=== PATIENT | male | born 1985 | race Caucasian/White ===

== ENCOUNTER 2019-07-26 18:35 | Observation (INO) | payer OTHER ==
[~2019-07-26 18:35] MED LIST: LORazepam 2 MG/ML Syringe ONE
[2019-07-26] MEDS ORDERED: LORazepam 2 MG/ML Syringe IVPUSH ONE (18:52)
[2019-07-26] MEDS ORDERED: Phenytoin 250 MG/5 ML SDV IVPUSH ONE (18:54)
[2019-07-26] MEDS ORDERED: MVI, Adult with Vitamin K 10 ML, Folic Acid 1 MG, Thiamine 100 MG, Magnesium Sulfate 2 ... IV ONE ×5 (18:55)
--- NOTE | 2019-07-26 18:59 | EDM.PDOC ---
ED HPI GENERAL MEDICAL PROBLEM - General Chief Complaint: Neurological Problem Stated Complaint: SEIZURE Time Seen by Provider: 07/26/19 18:50 Source of Information: Reports: Patient, EMS, Family History Limitations: Reports: No Limitations - History of Present Illness INITIAL COMMENTS - FREE TEXT/NARRATIVE: Patient to the emergency department where he had a seizure just prior to arrival. The patient was in the middle of cooking when he had the seizure. The patient advises he does have a history of seizures however he has not had a seizure for multiple years. The patient advises that his last seizure was when he was in the . The patient denies any headache denies any change in vision denies any ear, nose, or throat symptoms denies any unusual neck, back pain or stiffness denies any fever chills denies any chest pain or shortness of breath denies any abdominal pain no nausea, vomiting, diarrhea, no rash. The patient did arrive by EMS and it is unclear how long the seizure lasted. Onset: Sudden Duration: Minutes: Severity: Moderate Improves with: Reports: None Worsens with: Reports: None Context: Reports: Other (Was cooking dinner) Associated Symptoms: Reports: Seizure. Denies: Confusion, Chest Pain, Fever/ Chills, Headaches, Nausea/Vomiting, Rash, Shortness of Breath Treatments [employer]: Reports: Other (see below) (none) - Related Data Allergies Allergy/AdvReac Type Severity Reaction Status Date / Time No Known Allergies Allergy Verified 07/26/19 18:39 Home Meds: Home Meds . [No Known Home Meds] 07/26/19 [History] Past Medical History Neurological History: Reports: Seizure ED ROS GENERAL - Review of Systems Review Of Systems: See Below Constitutional: Reports: No Symptoms. Denies: Fever, Chills, Weakness HEENT: Reports: No Symptoms. Denies: Ear Pain, Nose Pain, Throat Pain Respiratory: Reports: No Symptoms. Denies: Shortness of Breath Cardiovascular: Reports: No Symptoms. Denies: Chest Pain Endocrine: Reports: No Symptoms GI/Abdominal: Reports: No Symptoms. Denies: Abdominal Pain, Nausea, Vomiting : Reports: No Symptoms Musculoskeletal: Reports: No Symptoms. Denies: Neck Pain, Back Pain Skin: Reports: No Symptoms. Denies: Bruising, Rash, Erythema Neurological: Reports: Seizure. Denies: Confusion, Dizziness, Headache, Numbness, Tingling, Trouble Speaking, Weakness, Change in Speech, Gait Disturbance Psychiatric: Reports: No Symptoms - Physical Exam Exam: See Below Exam Limited By: No Limitations General Appearance: Alert, WD/WN, No Apparent Distress Eye Exam: Bilateral Eye: EOMI Ears: Normal External Exam, Normal Canal, Hearing Grossly Normal, Normal TMs Nose: Normal Inspection, Normal Mucosa Throat/Mouth: Normal Inspection, Normal Lips, Normal Teeth, Normal Oropharynx, Normal Voice, No Airway Compromise Head Exam: Atraumatic, Normocephalic Neck: Normal Inspection, Supple, Non-Tender, Full Range of Motion Respiratory/Chest: No Respiratory Distress, Lungs Clear, Normal Breath Sounds, Chest Non-Tender Cardiovascular: Normal Peripheral Pulses, Regular Rate, Rhythm, No Murmur GI/Abdominal: Normal Bowel Sounds, Soft, Non-Tender Neuro Exam (Abbreviated): Alert, Oriented, CN II-XII Intact, Normal Cognition, No Motor/Sensory Deficits Back Exam: Normal Inspection, Full Range of Motion Extremities: Normal Inspection, Normal Range of Motion, Non-Tender, Normal Capillary Refill Psychiatric: Normal Affect, Normal Mood Skin Exam: Warm, Dry, Intact, Normal Color, No Rash Course - Vital Signs Text/Narrative:: The patient was evaluated in the emergency department, the patient has chili powder all over him where he was cooking chili before he had the seizure. The patient will be admitted, the patient had this chili powder suctions offer him with a vacuum curtain cleaner and then will be completely clean with soap and water to remove the rest of the chili powder. The patient has been given Ativan 1 mg IV along with Dilantin 1 g IV push. Patient does have chronic history of alcoholism and has been for over the past week drinking about 15 cans of beer a day. The patient is also going to receive a banana bag. The patient we monitored in observation overnight and have his Dilantin level repeated in the morning and then a disposition be made after that. Last Recorded V/S: Last Vital Signs Temp 37.9 C 07/26/19 18:36 Pulse 108 H 07/26/19 18:36 Resp 18 07/26/19 18:36 BP 168/85 H 07/26/19 18:36 Pulse Ox 94 L 07/26/19 18:36 - Orders/Labs/Meds Orders: Active Orders 24 hr Category Date Time Status CBC WITH AUTO DIFF [HEME] Stat Lab 07/26/19 18:53 Ordered COMPREHENSIVE METABOLIC PN,CMP [CHEM] Stat Lab 07/26/19 18:53 Ordered DRUG SCREEN URINE BIORAD [URCHEM] Stat Lab 07/26/19 18:53 Ordered ETHANOL BLOOD MEDICAL [CHEM] Stat Lab 07/26/19 18:53 Ordered MAGNESIUM [CHEM] Stat Lab 07/26/19 18:53 Ordered UA RFX ELMA AND CULT IF INDIC [URIN] Stat Lab 07/26/19 18:53 Ordered MVI, Adult with Vitamin K [Infuvite Adult] 10 ml Med 07/26/19 18:55 Ordered Folic Acid 1 mg Thiamine [Vitamin B-1] 100 mg Magnesium Sulfate [Magnesium Sulfate 50%] 2 gm Sodium Chloride 0.9% [Normal Saline] 1,000 ml IV ONETIME Medication Orders Multivitamins/Minerals 10 ml/Folic Acid 1 mg/ Thiamine HCl 100 mg/ Magnesium Sulfate 2 gm / Sodium Chloride 1,015.2 mls @ 250 mls/hr IV ONETIME ONE Stop: 07/26/19 22:58 Meds: Medications Generic Name Dose Route Start Last Admin Trade Name Freq PRN Reason Stop Dose Admin Multivitamins/Minerals 10 ml/ 1,015.2 mls @ 250 mls/hr 07/26/19 18:55 Folic Acid 1 mg/ Thiamine HCl IV 07/26/19 22:58 100 mg/ Magnesium Sulfate 2 gm ONETIME ONE / Sodium Chloride Discontinued Medications Generic Name Dose Route Start Last Admin Trade Name Freq PRN Reason Stop Dose Admin Levetiracetam Confirm 07/26/19 19:03 Keppra Administered 07/26/19 19:04 Dose 500 mg .ROUTE .STK-MED ONE Lorazepam Confirm 07/26/19 18:29 Ativan Administered 07/26/19 18:30 Dose 2 mg .ROUTE .STK-MED ONE Lorazepam 1 mg 07/26/19 18:52 07/26/19 18:53 Ativan IVPUSH 07/26/19 18:53 1 mg ONETIME ONE Administration Phenytoin Sodium 1,000 mg 07/26/19 18:54 07/26/19 19:08 Phenytoin IVPUSH 07/26/19 18:55 1,000 mg ONETIME ONE Administration Departure - Departure Time of Disposition: 19:14 Disposition: Refer to Observation Condition: Good Clinical Impression: Seizures, Alcoholism /alcohol abuse - Discharge Information *PRESCRIPTION DRUG MONITORING PROGRAM REVIEWED*: Not Applicable *COPY OF PRESCRIPTION DRUG MONITORING REPORT IN PATIENT TEENA: Not Applicable Forms: ED Department Discharge Sepsis Event Note - Evaluation Sepsis Screening Result: No Definite Risk - Focused Exam Vital Signs: Vital Signs Temp Pulse Resp BP Pulse Ox 07/26/19 18:36 37.9 C 108 H 18 168/85 H 94 L Date Exam was Performed: 07/26/19 Time Exam was Performed: 19:12 - Problem List & Annotations (1) Alcoholism /alcohol abuse SNOMED Code(s): 3743223 Code(s): F10.20 - ALCOHOL DEPENDENCE, UNCOMPLICATED Status: Acute Priority: High (2) Seizures SNOMED Code(s): 90904054 Code(s): R56.9 - UNSPECIFIED CONVULSIONS Status: Acute Priority: High - Problem List Review Problem List Initiated/Reviewed/Updated: Yes - My Orders Last 24 Hours: My Active Orders 07/26/19 18:53 CBC WITH AUTO DIFF [HEME] Stat COMPREHENSIVE METABOLIC PN,CMP [CHEM] Stat DRUG SCREEN URINE BIORAD [URCHEM] Stat ETHANOL BLOOD MEDICAL [CHEM] Stat MAGNESIUM [CHEM] Stat UA RFX ELMA AND CULT IF INDIC [URIN] Stat 07/26/19 18:55 MVI, Adult with Vitamin K [Infuvite Adult] 10 ml Folic Acid 1 mg Thiamine [ Vitamin B-1] 100 mg Magnesium Sulfate [Magnesium Sulfate 50%] 2 gm Sodium Chloride 0.9% [Normal Saline] 1,000 ml IV ONETIME - Assessment/Plan Last 24 Hours: My Active Orders 07/26/19 18:53 CBC WITH AUTO DIFF [HEME] Stat COMPREHENSIVE METABOLIC PN,CMP [CHEM] Stat DRUG SCREEN URINE BIORAD [URCHEM] Stat ETHANOL BLOOD MEDICAL [CHEM] Stat MAGNESIUM [CHEM] Stat UA RFX ELMA AND CULT IF INDIC [URIN] Stat 07/26/19 18:55 MVI, Adult with Vitamin K [Infuvite Adult] 10 ml Folic Acid 1 mg Thiamine [ Vitamin B-1] 100 mg Magnesium Sulfate [Magnesium Sulfate 50%] 2 gm Sodium Chloride 0.9% [Normal Saline] 1,000 ml IV ONETIME Plan: as above
[2019-07-26] MEDS ORDERED: levETIRAcetam 500 MG Tab ONE (19:03)
[2019-07-26 19:27] LABS: CHLORIDE,CL 96 mEq/L (98-106); SODIUM,NA 138 mEq/L (136-145)
[2019-07-26] MEDS ORDERED: Ondansetron 4 MG/2 ML SDV IVPUSH PRN (20:49)
[2019-07-26] MEDS: Phenytoin 100 MG Cap.ER PO SCH (21:06)
[2019-07-26] MEDS ORDERED: Ondansetron 4 MG/2 ML SDV ONE (21:16)
[2019-07-27] MEDS: Sodium Chloride 0.9% 1,000 ML IV SCH ×3 (00:21→22:44)
[2019-07-27] MEDS: LORazepam 2 MG/ML Syringe IVPUSH PRN (00:28)
[2019-07-27] MEDS: Phenytoin 100 MG Cap.ER PO SCH ×3 (07:26→19:46)
[2019-07-27] MEDS ORDERED: cefTRIAXone 2 GM Vial IVPUSH ONE (09:36)
--- NOTE | 2019-07-27 10:27 | PCM.PN ---
- General Info Date of Service: 07/27/19 Admission Dx/Problem (Free Text): seizures Functional Status: Reports: Tolerating Diet - Review of Systems General: Reports: No Symptoms. Denies: Fever, Weakness, Chills HEENT: Reports: No Symptoms Pulmonary: Reports: No Symptoms. Denies: Shortness of Breath Cardiovascular: Reports: No Symptoms. Denies: Chest Pain Gastrointestinal: Reports: No Symptoms. Denies: Abdominal Pain, Nausea, Vomiting Genitourinary: Reports: No Symptoms Musculoskeletal: Reports: No Symptoms Skin: Reports: No Symptoms Neurological: Reports: No Symptoms. Denies: Confusion, Dizziness, Headache, Seizure Psychiatric: Reports: No Symptoms - Patient Data Vitals - Most Recent: Last Vital Signs Temp 37.3 C 07/27/19 07:25 Pulse 97 07/27/19 07:25 Resp 20 07/27/19 07:25 BP 121/84 07/27/19 07:25 Pulse Ox 98 07/27/19 07:25 Weight - Most Recent: 60.827 kg I&O - Last 24 Hours: Intake & Output 07/26/19 07/27/19 07/27/19 22:59 06:59 14:59 Intake Total 200 1650 360 Output Total 901 831 1628 Balance -400 1100 -640 Lab Results Last 24 Hours: Laboratory Results - last 24 hr 07/26/19 07/26/19 07/26/19 Range/Units 18:53 18:53 19:10 WBC 3.7 L (5.0-10.0) 10^3/uL RBC 4.46 L (4.50-6.00) 10^6/uL Hgb 14.1 (14.0-18.0) g/dL Hct 39.5 L (40.0-54.0) % MCV 88.6 (82.0-94.0) fL MCH 31.6 (27.0-32.0) pg MCHC 35.7 (33.0-38.0) g/dL RDW Coeff of Thomas 12.2 (11.0-15.0) % Plt Count 45 L* (150-400) 10^3/uL Neut % (Auto) 78.9 (35-85) % Lymph % (Auto) 9.3 L (10-55) % [place] % (Auto) 11.2 (0-16) % Eos % (Auto) 0.3 (0-5) % Baso % (Auto) 0.3 (0-3) % Neut # (Auto) 2.88 (1.80-7.00) 10^3/uL Lymph # (Auto) 0.34 L (1.00-4.80) 10^3/uL [place] # (Auto) 0.41 (0.00-0.80) 10^3/uL Eos # (Auto) 0.01 (0.00-0.45) 10^3/uL Baso # (Auto) 0.01 10^3/uL Sodium (136-145) mEq/L Potassium (3.5-5.0) mEq/L Chloride (98-106) mEq/L Carbon Dioxide (21-32) mmol/L BUN (7-18) mg/dL Creatinine (0.7-1.3) mg/dL Est Cr Clr Drug Dosing mL/min Estimated GFR (MDRD) (>=60) mL/min Glucose (75-99) mg/dL Calcium (8.4-10.1) mg/dL Magnesium (1.8-2.4) mg/dL Total Bilirubin (0.0-1.0) mg/dL AST (15-37) U/L ALT (12-78) U/L Alkaline Phosphatase (46-116) U/L Total Protein (6.4-8.2) g/dL Albumin (3.4-5.0) g/dL Urine Color Yellow (YELLOW) Urine Appearance Slightly cloudy (CLEAR) Urine pH 8.5 H (4.5-8.0) Ur Specific [place] 1.015 (1.003-1.020) Urine Protein 30 H (NEGATIVE) mg/dL Urine Glucose (UA) Negative (NEGATIVE) mg/dL Urine Ketones Negative (NEGATIVE) mg/dL Urine Occult Blood Large H (NEGATIVE) Urine Nitrite Negative (NEGATIVE) Urine Bilirubin Negative (NEGATIVE) Urine Urobilinogen 0.2 (0.2-1.0) EU/dL Ur Leukocyte Esterase Moderate H (NEGATIVE) Urine RBC 0-5 (0-5) /HPF Urine WBC 50-75 H (0-5) /HPF Urine WBC Clumps Few H (NOT SEEN) /HPF Ur Epithelial Cells Few H (NOT SEEN) /HPF Urine Bacteria Many H (NOT SEEN) /HPF Urine Opiates Screen Negative (NEGATIVE) Ur Oxycodone Screen Negative (NEGATIVE) Urine Methadone Screen Negative (NEGATIVE) Ur Barbiturates Screen Negative (NEGATIVE) U Tricyclic Antidepress Negative (NEGATIVE) Ur Phencyclidine Scrn Negative (NEGATIVE) Ur Amphetamine Screen Negative (NEGATIVE) U Methamphetamines Scrn Negative (NEGATIVE) Urine MDMA Screen Negative (NEGATIVE) U Benzodiazepines Scrn Negative (NEGATIVE) Urine Cocaine Screen Negative (NEGATIVE) U Marijuana (THC) Screen Negative (NEGATIVE) Ethyl Alcohol (0-3) mg/dL 07/26/19 Range/Units 19:10 WBC (5.0-10.0) 10^3/uL RBC (4.50-6.00) 10^6/uL Hgb (14.0-18.0) g/dL Hct (40.0-54.0) % MCV (82.0-94.0) fL MCH (27.0-32.0) pg MCHC (33.0-38.0) g/dL RDW Coeff of Thomas (11.0-15.0) % Plt Count (150-400) 10^3/uL Neut % (Auto) (35-85) % Lymph % (Auto) (10-55) % [place] % (Auto) (0-16) % Eos % (Auto) (0-5) % Baso % (Auto) (0-3) % Neut # (Auto) (1.80-7.00) 10^3/uL Lymph # (Auto) (1.00-4.80) 10^3/uL [place] # (Auto) (0.00-0.80) 10^3/uL Eos # (Auto) (0.00-0.45) 10^3/uL Baso # (Auto) 10^3/uL Sodium 138 (136-145) mEq/L Potassium 3.5 (3.5-5.0) mEq/L Chloride 96 L (98-106) mEq/L Carbon Dioxide 20 L (21-32) mmol/L BUN 3 L (7-18) mg/dL Creatinine 0.7 (0.7-1.3) mg/dL Est Cr Clr Drug Dosing 127.57 mL/min Estimated GFR (MDRD) > 60 (>=60) mL/min Glucose 116 H (75-99) mg/dL Calcium 9.1 (8.4-10.1) mg/dL Magnesium 1.6 L (1.8-2.4) mg/dL Total Bilirubin 0.9 (0.0-1.0) mg/dL AST 174 H (15-37) U/L ALT 187 H (12-78) U/L Alkaline Phosphatase 114 (46-116) U/L Total Protein 7.5 (6.4-8.2) g/dL Albumin 3.5 (3.4-5.0) g/dL Urine Color (YELLOW) Urine Appearance (CLEAR) Urine pH (4.5-8.0) Ur Specific [place] (1.003-1.020) Urine Protein (NEGATIVE) mg/dL Urine Glucose (UA) (NEGATIVE) mg/dL Urine Ketones (NEGATIVE) mg/dL Urine Occult Blood (NEGATIVE) Urine Nitrite (NEGATIVE) Urine Bilirubin (NEGATIVE) Urine Urobilinogen (0.2-1.0) EU/dL Ur Leukocyte Esterase (NEGATIVE) Urine RBC (0-5) /HPF Urine WBC (0-5) /HPF Urine WBC Clumps (NOT SEEN) /HPF Ur Epithelial Cells (NOT SEEN) /HPF Urine Bacteria (NOT SEEN) /HPF Urine Opiates Screen (NEGATIVE) Ur Oxycodone Screen (NEGATIVE) Urine Methadone Screen (NEGATIVE) Ur Barbiturates Screen (NEGATIVE) U Tricyclic Antidepress (NEGATIVE) Ur Phencyclidine Scrn (NEGATIVE) Ur Amphetamine Screen (NEGATIVE) U Methamphetamines Scrn (NEGATIVE) Urine MDMA Screen (NEGATIVE) U Benzodiazepines Scrn (NEGATIVE) Urine Cocaine Screen (NEGATIVE) U Marijuana (THC) Screen (NEGATIVE) Ethyl Alcohol 17 H (0-3) mg/dL Med Orders - Current: Current Medications Ceftriaxone Sodium (Rocephin) 1 gm IVPUSH Q24H GEORGE Sodium Chloride (Normal Saline) 1,000 mls @ 100 mls/hr IV ASDIRECTED GEORGE Last Admin: 07/27/19 00:21 Dose: 100 mls/hr Magnesium Sulfate/Dextrose 1 (gm/ Premix) 100 mls @ 100 mls/hr IV Q1H GEORGE Stop: 07/27/19 11:44 Lorazepam (Ativan) 1 mg IVPUSH ASDIRECTED PRN PRN Reason: Agitation Last Admin: 07/27/19 00:28 Dose: 1 mg Ondansetron HCl (Zofran) 4 mg IVPUSH Q6H PRN PRN Reason: Nausea/Vomiting Last Admin: 07/26/19 21:11 Dose: 4 mg Phenytoin Sodium (Phenytoin) 100 mg PO TID GEORGE Last Admin: 07/27/19 07:26 Dose: 100 mg Discontinued Medications Ceftriaxone Sodium (Rocephin) 2 gm IVPUSH ONETIME ONE Stop: 07/27/19 09:37 Multivitamins/Minerals 10 ml/Folic Acid 1 mg/ Thiamine HCl 100 mg/ Magnesium Sulfate 2 gm / Sodium Chloride 1,015.2 mls @ 250 mls/hr IV ONETIME ONE Stop: 07/26/19 22:58 Last Admin: 07/26/19 19:12 Dose: 250 mls/hr Levetiracetam (Keppra) Confirm Administered Dose 500 mg .ROUTE .STK-MED ONE Stop: 07/26/19 19:04 Lorazepam (Ativan) Confirm Administered Dose 2 mg .ROUTE .STK-MED ONE Stop: 07/26/19 18:30 Last Admin: 07/26/19 20:30 Dose: Not Given Lorazepam (Ativan) 1 mg IVPUSH ONETIME ONE Stop: 07/26/19 18:53 Last Admin: 07/26/19 18:53 Dose: 1 mg Ondansetron HCl (Zofran) Confirm Administered Dose 4 mg .ROUTE .STK-MED ONE Stop: 07/26/19 21:17 Last Admin: 07/26/19 21:11 Dose: Not Given Phenytoin Sodium (Phenytoin) 1,000 mg IVPUSH ONETIME ONE Stop: 07/26/19 18:55 Last Admin: 07/26/19 19:08 Dose: 1,000 mg - Exam General: Alert, Oriented, Cooperative HEENT: Pupils Equal Neck: Supple, Trachea Midline Lungs: Clear to Auscultation, Normal Respiratory Effort Cardiovascular: Regular Rate, Regular Rhythm, No Murmurs GI/Abdominal Exam: Normal Bowel Sounds, Soft, Non-Tender Back Exam: Normal Inspection, Full Range of Motion Extremities: Normal Inspection, Normal Range of Motion, Non-Tender, Normal Capillary Refill Peripheral Pulses: 2+: Radial (L) Skin: Warm, Dry, Intact Neurological: No New Focal Deficit Psy/Mental Status: Alert, Normal Affect, Normal Mood Sepsis Event Note - Evaluation Sepsis Screening Result: No Definite Risk - Focused Exam Vital Signs: Vital Signs Temp Pulse Pulse Resp BP BP Pulse Ox 07/27/19 07:25 37.3 C 97 20 121/84 98 07/27/19 03:25 35.9 C 120 H 18 133/80 97 07/27/19 00:00 37.5 C 130 H 20 104/77 96 Date Exam was Performed: 07/27/19 Time Exam was Performed: 10:24 - Problem List & Annotations (1) Alcoholism /alcohol abuse SNOMED Code(s): 3492947 Code(s): F10.20 - ALCOHOL DEPENDENCE, UNCOMPLICATED Status: Acute Priority: High Current Visit: No (2) Seizures SNOMED Code(s): 60930040 Code(s): R56.9 - UNSPECIFIED CONVULSIONS Status: Acute Priority: High Current Visit: No (3) UTI (urinary tract infection) SNOMED Code(s): 18012698 Code(s): N39.0 - URINARY TRACT INFECTION, SITE NOT SPECIFIED Status: Acute Priority: Medium Current Visit: Yes Qualifiers: Urinary tract infection type: site unspecified (4) Hypomagnesemia SNOMED Code(s): 638818472 Code(s): E83.42 - HYPOMAGNESEMIA Status: Acute Priority: Medium Current Visit: Yes - Problem List Review Problem List Initiated/Reviewed/Updated: Yes - My Orders Last 24 Hours: My Active Orders 07/26/19 18:53 CULTURE URINE [RM] Stat 07/26/19 19:16 Patient Status [ADT] Routine Bedrest Bedside Commode [RC] .PRN Oxygen Therapy [RC] .PRN Up With Assistance [RC] .PRN Vital Signs [RC] 0000,0400,0800,1200,1600,2000 Resuscitation Status Routine 07/26/19 19:17 Cardiac Monitoring [RC] 0800,2000 Intake and Output [RC] 0600,1800 07/26/19 19:19 LORazepam [Ativan] 1 mg IVPUSH ASDIRECTED PRN 07/26/19 19:22 CIWAA Assessment [RC] Q1H Seizure Precautions [OM.PC] Routine 07/26/19 19:30 Sodium Chloride 0.9% [Normal Saline] 1,000 ml IV ASDIRECTED 07/26/19 19:33 Head wo Cont [CT] Stat 07/26/19 20:00 Phenytoin 100 mg PO TID 07/26/19 20:49 Ondansetron [Zofran] 4 mg IVPUSH Q6H PRN 07/27/19 09:45 Magnesium Sulfate/D5W [Magnesium Sulfate in D5W 100 Premix] 1 gm Premix Bag 1 bag IV Q1H 07/27/19 Breakfast Regular Diet [DIET] 07/28/19 09:00 cefTRIAXone [Rocephin] 1 gm IVPUSH Q24H - Plan Plan:: the pt has not had any seizures, his Mag is low and will be replaced, his urine does show a UTI and he will be started on Rocephin, will continue Dilantin and will reassess in am and plan for dc in am.
[2019-07-27] MEDS ORDERED: Nicotine 21 MG/24 Hr Patch TRDERM ONE (14:19)
[2019-07-28] MEDS: LORazepam 2 MG/ML Syringe IVPUSH PRN (05:23)
[2019-07-28 07:36] LABS: CHLORIDE,CL 102 mEq/L (98-106); SODIUM,NA 139 mEq/L (136-145)
[2019-07-28] MEDS: Phenytoin 100 MG Cap.ER PO SCH (08:09)
[2019-07-28] MEDS ORDERED: cefTRIAXone 1 GM Vial IVPUSH SCH (09:00)
[2019-07-28] MEDS: Sodium Chloride 0.9% 1,000 ML IV SCH (09:20)
[2019-07-28] MEDS ORDERED: LORazepam 0.5 MG Tab PO PRN (11:02)
[2019-07-28] MEDS ORDERED: Take Home: Cephalexin 500 MG Cap, 4 Cap Pack PO ONE (11:03)
[2019-07-28] MEDS ORDERED: Phenytoin 100 MG Cap.ER PO ONE (11:15)
[2019-07-28] MEDS ORDERED: Cephalexin 500 MG Cap ONE (11:25)
[2019-07-28] MEDS ORDERED: LORazepam 0.5 MG Tab PO ONE (12:19)
[2019-07-28] MEDS ORDERED: EPINEPHrine 1 MG/1 ML Amp ONE (17:20)
[2019-07-28] MEDS ORDERED: LORazepam 0.5 MG Tab ONE (19:57)
--- NOTE | 2019-07-29 10:13 | DISCH ---
ADMISSION DIAGNOSES: 1. Seizure. 2. Alcoholism/alcohol abuse. 3. Hypomagnesemia. 4. Thrombocytopenia. DISCHARGE DIAGNOSIS: 1. HISTORY OF SEIZURE ACTIVITY. 2. ALCOHOL WITHDRAWAL. 3. HYPOMAGNESEMIA, RESOLVED. 4. THROMBOCYTOPENIA, QUESTION SECONDARY TO ALCOHOLISM. HISTORY OF PRESENT ILLNESS: Bob had presented to the emergency room on the with concerns of a seizure just prior to arrival. He does have a known history of a seizure activity; however, he has not had a seizure for multiple years. 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 Upon EMS arrival, seizure activity had subsided. The patient was admitted to the hospital with concerns of alcohol abuse with an elevated alcohol level. BRIEF HOSPITAL COURSE: The patient was treated with IV fluids along with thiamine, folic acid, magnesium supplementation and started on Dilantin. Phenytoin levels have been ordered; however, they are sent out, no results have been back. The patient is requesting to be discharged today. Mother is present along with father who wished to have him discharged today as [facility] PHYSICAL EXAMINATION: GENERAL APPEARANCE: He is alert. He really does not appear to be in any distress. He does appear to be somewhat anxious, however. HEENT: Grossly unremarkable. PSYCHIATRIC: Normal affect, normal mood per family. LABORATORY DATA: Laboratory results this morning does show a platelet count of 49,000, it was 45,000 on the . Potassium this morning is 3.3. Magnesium is 1.9, up from 1.6 on the . AST and ALT have been elevated; initially AST was 174 with an ALT of 187 on the , today it was 106 for AST and 118 for ALT. Urinalysis did show UTI, culture is pending. DISPOSITION: We will discharge home. The patient is to follow up with the [facility] for possible evaluation for chronic alcoholism. DIET: Normal diet as tolerated. He is to refrain from any alcohol use. DISCHARGE MEDICATIONS: 1. We did discharge home with Ativan 1 mg every 8 hours as needed for withdrawal symptoms. 2. He should be on thiamine 100 mg daily. 3. Magnesium supplementation to include magnesium sulfate 250 mg daily. 4. Dilantin 100 mg t.i.d. FOLLOWUP APPOINTMENT: [facility] work and get a repeat Dilantin level, etc. JENNY/ELVIRA /[id number]
== END 2019-07-28 11:55 | disposition home or self-care (01) ==
LOC: CC.ED 18:35 → CC.MS 19:15 → CC.ED 19:54
PROVIDERS: ADMIT Nurse Practitioner; ATTEND Family Medicine
DX: R56.9 Unspecified convulsions (principal); E83.42 Hypomagnesemia; D69.6 Thrombocytopenia, unspecified; F10.239 Alcohol dependence with withdrawal, unspecified
CPT/HCPCS: 36415; 70450; 80053; 80185; 80305-QW; 81001; 83735; 85025; 87086; 87088; 87186; A9270-GY; G0480; J0696; J1165; J2060; J2405; J3411; J3475; J3490; J7030

== ENCOUNTER 2020-07-28 14:10 | Emergency (ER) | payer SELFPAY ==
--- NOTE | 2020-07-28 14:38 | EDM.PDOC ---
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 Denies any warning to it. Denies any injury. Did not have loss of bowel or bladder but did have emesis as he was waking up and had second one when getting to the ER. He refused ambulance transfer. His last seizure was 07/26/2019. He has not been worked up for it since. Has not seen neurology. Was feeling well prior to that. Has history of alcohol abuse. States that last drink he had was 2 days ago. He decided to quit cold turkey. Had been drinking 6-12 whiskey drinks a day [facility]. He admits that he felt that he was withdrawing earlier today prior to seizure. Onset: Sudden - Related Data Allergies Allergy/AdvReac Type Severity Reaction Status Date / Time No Known Allergies Allergy Verified 07/28/20 15:35 Past Medical History Neurological History: Reports: Seizure - Past Surgical History Cardiovascular Surgical History: Reports: Coronary Artery Stent Musculoskeletal Surgical History: Reports: Other (See Below) Other Musculoskeletal Surgeries/Procedures:: vertebral surgery. shell in R)elbow Social & Family History - Family History Family Medical History: No Pertinent Family History - Caffeine Use Caffeine Use: Reports: None - Living Situation & Occupation Living situation: Reports: Single, with Family Occupation: Unemployed ED ROS GENERAL - Review of Systems Review Of Systems: See Below Constitutional: Denies: Fever, Chills HEENT: Reports: No Symptoms Respiratory: Reports: No Symptoms Cardiovascular: Reports: Dyspnea on Exertion GI/Abdominal: Reports: No Symptoms : Reports: No Symptoms Musculoskeletal: Reports: No Symptoms Skin: Reports: No Symptoms Neurological: Reports: Seizure Psychiatric: Reports: No Symptoms ED EXAM, NEURO - Physical Exam Exam: See Below Exam Limited By: No Limitations General Appearance: Alert, WD/WN, Anxious Ears: Normal External Exam Nose: Normal Inspection Throat/Mouth: Normal Inspection, Normal Oropharynx, No Airway Compromise Head Exam: Atraumatic, Normocephalic Neck: Normal Inspection, Supple, Non-Tender, Full Range of Motion Respiratory/Chest: No Respiratory Distress, Lungs Clear, Normal Breath Sounds Cardiovascular: Regular Rate, Rhythm, No Edema GI/Abdominal: Normal Bowel Sounds, Soft, Non-Tender, No Organomegaly Neurological: Alert, Normal Mood/Affect, CN II-XII Intact, No Motor/Sensory Deficits, Oriented x 3 Back Exam: Normal Inspection Extremities: Normal Inspection, No Pedal Edema, Normal Capillary Refill Psychiatric: Normal Affect Skin Exam: Warm, Dry, Intact Course - Vital Signs Last Recorded V/S: Last Vital Signs Temp 97.3 F 07/28/20 15:23 Pulse 121 H 07/28/20 15:23 Resp 20 07/28/20 15:23 BP 158/94 H 07/28/20 15:23 Pulse Ox 98 07/28/20 15:23 - Orders/Labs/Meds Orders: Active Orders 24 hr Category Date Time Status Head wo Cont [CT] Stat Exams 07/28/20 14:44 Ordered CULTURE URINE [RM] Routine Lab 07/28/20 14:28 Received Labs: Laboratory Tests 07/28/20 07/28/20 07/28/20 Range/Units 14:28 14:28 14:28 WBC 4.7 L (5.0-10.0) 10^3/uL RBC 4.99 (4.50-6.00) 10^6/uL Hgb 16.2 (14.0-18.0) g/dL Hct 46.0 (40.0-54.0) % MCV 92.2 (82.0-94.0) fL MCH 32.5 H (27.0-32.0) pg MCHC 35.2 (33.0-38.0) g/dL RDW Coeff of Thomas 13.0 (11.0-15.0) % Plt Count 75 L (150-400) 10^3/uL Neut % (Auto) 75.6 (35-85) % Lymph % (Auto) 12.1 (10-55) % [place] % (Auto) 11.0 (0-16) % Eos % (Auto) 1.1 (0-5) % Baso % (Auto) 0.2 (0-3) % Neut # (Auto) 3.57 (1.80-7.00) 10^3/uL Lymph # (Auto) 0.57 L (1.00-4.80) 10^3/uL [place] # (Auto) 0.52 (0.00-0.80) 10^3/uL Eos # (Auto) 0.05 (0.00-0.45) 10^3/uL Baso # (Auto) 0.01 10^3/uL Sodium 134 L (136-145) mEq/L Potassium 3.2 L (3.5-5.0) mEq/L Chloride 92 L (98-106) mEq/L Carbon Dioxide 26 (21-32) mmol/L BUN 8 D (7-18) mg/dL Creatinine 1.1 D (0.7-1.3) mg/dL Est Cr Clr Drug Dosing TNP Estimated GFR (MDRD) > 60 (>=60) mL/min Glucose 129 H D (75-99) mg/dL Calcium 9.8 (8.4-10.1) mg/dL Total Bilirubin 1.9 H (0.0-1.0) mg/dL AST 54 H (15-37) U/L ALT 52 (12-78) U/L Alkaline Phosphatase 98 (46-116) U/L C-Reactive Protein < 0.2 L (0.2-0.8) mg/dL Total Protein 7.8 (6.4-8.2) g/dL Albumin 3.7 (3.4-5.0) g/dL Urine Color (YELLOW) Urine Appearance (CLEAR) Urine pH (4.5-8.0) Ur Specific [place] (1.003-1.020) Urine Protein (NEGATIVE) mg/dL Urine Glucose (UA) (NEGATIVE) mg/dL Urine Ketones (NEGATIVE) mg/dL Urine Occult Blood (NEGATIVE) Urine Nitrite (NEGATIVE) Urine Bilirubin (NEGATIVE) Urine Urobilinogen (0.2-1.0) EU/dL Ur Leukocyte Esterase (NEGATIVE) Urine RBC (0-5) /HPF Urine WBC (0-5) /HPF Urine Bacteria (NOT SEEN) /HPF Urine Mucus (NOT SEEN) /HPF Urinalysis Comment Urine Opiates Screen (NEGATIVE) Ur Oxycodone Screen (NEGATIVE) Urine Methadone Screen (NEGATIVE) Ur Barbiturates Screen (NEGATIVE) U Tricyclic Antidepress (NEGATIVE) Ur Phencyclidine Scrn (NEGATIVE) Ur Amphetamine Screen (NEGATIVE) U Methamphetamines Scrn (NEGATIVE) Urine MDMA Screen (NEGATIVE) U Benzodiazepines Scrn (NEGATIVE) Urine Cocaine Screen (NEGATIVE) U Marijuana (THC) Screen (NEGATIVE) Ethyl Alcohol (0-3) mg/dL SARS CoV-2 RNA Rapid MARIANNE Negative (NEGATIVE) 07/28/20 07/28/20 07/28/20 Range/Units 14:28 14:43 15:08 WBC (5.0-10.0) 10^3/uL RBC (4.50-6.00) 10^6/uL Hgb (14.0-18.0) g/dL Hct (40.0-54.0) % MCV (82.0-94.0) fL MCH (27.0-32.0) pg MCHC (33.0-38.0) g/dL RDW Coeff of Thomas (11.0-15.0) % Plt Count (150-400) 10^3/uL Neut % (Auto) (35-85) % Lymph % (Auto) (10-55) % [place] % (Auto) (0-16) % Eos % (Auto) (0-5) % Baso % (Auto) (0-3) % Neut # (Auto) (1.80-7.00) 10^3/uL Lymph # (Auto) (1.00-4.80) 10^3/uL [place] # (Auto) (0.00-0.80) 10^3/uL Eos # (Auto) (0.00-0.45) 10^3/uL Baso # (Auto) 10^3/uL Sodium (136-145) mEq/L Potassium (3.5-5.0) mEq/L Chloride (98-106) mEq/L Carbon Dioxide (21-32) mmol/L BUN (7-18) mg/dL Creatinine (0.7-1.3) mg/dL Est Cr Clr Drug Dosing Estimated GFR (MDRD) (>=60) mL/min Glucose (75-99) mg/dL Calcium (8.4-10.1) mg/dL Total Bilirubin (0.0-1.0) mg/dL AST (15-37) U/L ALT (12-78) U/L Alkaline Phosphatase (46-116) U/L C-Reactive Protein (0.2-0.8) mg/dL Total Protein (6.4-8.2) g/dL Albumin (3.4-5.0) g/dL Urine Color [place] (YELLOW) Urine Appearance Slightly cloudy (CLEAR) Urine pH 6.0 (4.5-8.0) Ur Specific [place] >= 1.030 H (1.003-1.020) Urine Protein 100 H (NEGATIVE) mg/dL Urine Glucose (UA) Negative (NEGATIVE) mg/dL Urine Ketones 15 H (NEGATIVE) mg/dL Urine Occult Blood Negative (NEGATIVE) Urine Nitrite Positive H (NEGATIVE) Urine Bilirubin Small H (NEGATIVE) Urine Urobilinogen 0.2 (0.2-1.0) EU/dL Ur Leukocyte Esterase Small H (NEGATIVE) Urine RBC 0-5 (0-5) /HPF Urine WBC 75-100 H (0-5) /HPF Urine Bacteria Many H (NOT SEEN) /HPF Urine Mucus Occasional H (NOT SEEN) /HPF Urinalysis Comment Urine Opiates Screen Negative (NEGATIVE) Ur Oxycodone Screen Negative (NEGATIVE) Urine Methadone Screen Negative (NEGATIVE) Ur Barbiturates Screen Negative (NEGATIVE) U Tricyclic Antidepress Negative (NEGATIVE) Ur Phencyclidine Scrn Negative (NEGATIVE) Ur Amphetamine Screen Negative (NEGATIVE) U Methamphetamines Scrn Negative (NEGATIVE) Urine MDMA Screen Negative (NEGATIVE) U Benzodiazepines Scrn Negative (NEGATIVE) Urine Cocaine Screen Negative (NEGATIVE) U Marijuana (THC) Screen Negative (NEGATIVE) Ethyl Alcohol < 3 (0-3) mg/dL SARS CoV-2 RNA Rapid MARIANNE (NEGATIVE) - Re-Assessments/Exams Free Text/Narrative Re-Assessment/Exam: 07/28/20 15:40 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 She does not recommend that he be put on antiseizure meds at this time as it is due to abrupt alcohol withdrawal. She recommends that he sees neurology for EEG and seizure workup to rule out any underlying seizure disorder. Departure - Departure Time of Disposition: 15:55 Disposition: Home, Self-Care 01 Condition: Fair Clinical Impression: Seizure due to alcohol withdrawal Qualifiers: Complication of substance-induced condition: uncomplicated Qualified Code(s): F10.230 - Alcohol dependence with withdrawal, uncomplicated EtOH dependence Qualifiers: Substance use status: uncomplicated Qualified Code(s): F10.20 - Alcohol dependence, uncomplicated - Discharge Information *PRESCRIPTION DRUG MONITORING PROGRAM REVIEWED*: Not Applicable *COPY OF PRESCRIPTION DRUG MONITORING REPORT IN PATIENT TEENA: Not Applicable Referrals: PCP,None [Primary Care Provider] - Forms: ED Department Discharge Additional Instructions: Do not stop drinking abruptly in the future. Need to get to counseling to stop drinking Neurology appt to have workup of seizures and EEG- call me with where you want to be seen and will help arrange for appt. No driving for 6 months seizure free unless released by neurology. Stay with someone for the next 24 hours in case another seizure occurs Sepsis Event Note (ED) - Focused Exam Vital Signs: Vital Signs Temp Pulse Resp BP Pulse Ox 07/28/20 15:23 97.3 F 121 H 20 158/94 H 98 - Problem List & Annotations (1) EtOH dependence SNOMED Code(s): 35549488 Code(s): F10.20 - ALCOHOL DEPENDENCE, UNCOMPLICATED Status: Acute Priority: High Current Visit: Yes Qualifiers: Substance use status: uncomplicated Qualified Code(s): F10.20 - Alcohol dependence, uncomplicated (2) Seizure due to alcohol withdrawal SNOMED Code(s): 260472028 Code(s): F10.239 - ALCOHOL DEPENDENCE WITH WITHDRAWAL, UNSPECIFIED; R56.9 - UNSPECIFIED CONVULSIONS Status: Acute Priority: High Current Visit: Yes Qualifiers: Complication of substance-induced condition: uncomplicated Qualified Code(s ): F10.230 - Alcohol dependence with withdrawal, uncomplicated; R56.9 - Unspecified convulsions - Problem List Review Problem List Initiated/Reviewed/Updated: Yes - My Orders Last 24 Hours: My Active Orders 07/28/20 14:28 CULTURE URINE [RM] Routine 07/28/20 14:44 Head wo Cont [CT] Stat - Assessment/Plan Last 24 Hours: My Active Orders 07/28/20 14:28 CULTURE URINE [RM] Routine 07/28/20 14:44 Head wo Cont [CT] Stat
[2020-07-28 14:42] LABS: CHLORIDE,CL 92 mEq/L (98-106); SODIUM,NA 134 mEq/L (136-145)
[2020-07-28 15:26] VITALS: BP 158/94; PULSE 121
== END 2020-07-28 16:10 | disposition home or self-care (01) ==
LOC: CC.ED 14:10
DX: R56.9 Unspecified convulsions (principal); F10.230 Alcohol dependence with withdrawal, uncomplicated; Z20.828 Contact with and (suspected) exposure to other viral communicable diseases
CPT/HCPCS: 36415; 70450; 80053; 80305-QW; 80307; 81001; 85025; 86140; 87086; 87088; 87186; 99284-25; U0002

== ENCOUNTER 2022-01-07 21:37 | Emergency (ER) | payer SELFPAY ==
[2022-01-07] MEDS ORDERED: Sodium Chloride 0.9% 10 ML Syringe FLUSH PRN (21:53)
[2022-01-07] MEDS: Ondansetron 4 MG/2 ML SDV IVPUSH STA ×2 (22:10→23:29)
[2022-01-07] MEDS: Sodium Chloride 0.9% 1,000 ML IV ONE (22:12)
[2022-01-07 22:31] LABS: CHLORIDE,CL 103 mEq/L (98-106); ESTIMATED GFR > 60 mL/min (>=60); SODIUM,NA 144 mEq/L (136-145)
== END 2022-01-08 00:42 | disposition home or self-care (01) ==
LOC: CC.ED 21:37
DX: F10.229 Alcohol dependence with intoxication, unspecified (principal); R45.851 Suicidal ideations; Y90.7 Blood alcohol level of 200-239 mg/100 ml
CPT/HCPCS: 36415; 80053; 80307; 83735; 85025; 96374; 96376; 99284; 99285-25; J2405; J7030

== ENCOUNTER 2025-06-01 10:57 | Emergency (ER) | payer SELFPAY ==
[2025-06-01 11:35] LABS: BASOPHILS ABSOLUTE AUTO 0.01 10^3/uL (0.00-0.50); BASOPHILS PERCENT AUTO 0.2 % (0-1); EOSINOPHILS ABSOLUTE AUTO 0.04 10^3/uL (0.00-1.50); EOSINOPHILS PERCENT AUTO 0.7 % (0-6); IMMATURE GRAN ABSOLUTE AUTO 0.01 10^3/uL (0.00-0.49); IMMATURE GRAN PERCENT AUTO 0.2 % (0.0-4.9); LYMPHOCYTES ABSOLUTE AUTO 0.59 10^3/uL (0.60-5.00); LYMPHOCYTES PERCENT AUTO 10.1 % (24-44); MONOCYTES ABSOLUTE AUTO 0.44 10^3/uL (0.00-1.50); MONOCYTES PERCENT AUTO 7.5 % (0-10); NEUTROPHILS ABSOLUTE AUTO 4.74 x10^3/uL (1.80-8.00); NEUTROPHILS PERCENT AUTO 81.3 % (41-71); RED BLOOD CELL COUNT 4.53 x10^6/uL (4.50-6.00); WHITE BLOOD CELL COUNT,WBC 5.8 10^3/uL (4.0-11.0)
[2025-06-01 11:46] LABS: ALANINE AMINOTRANSFERASE,ALT 46 U/L (12-78); ASPARTATE AMNIOTRANSFERASE,AST 47 U/L (15-37); BILIRUBIN TOTAL 2.0 mg/dL (0.0-1.0); BLOOD UREA NITROGEN,BUN 7 mg/dL (7-18); CARBON DIOXIDE,CO2 30 mmol/L (21-32); CHLORIDE,CL 93 mEq/L (98-106); CREATINE KINASE,CK 70 U/L (35-232); CREATININE 1.1 mg/dL (0.7-1.3); EST CRCL DRUG DOSING (CG) 82.63 mL/min; GLUCOSE RANDOM 130 mg/dL (75-99); POTASSIUM,K 3.2 mEq/L (3.5-5.0); PROTEIN TOTAL,TP 7.3 g/dL (6.4-8.2); SODIUM,NA 135 mEq/L (136-145)
[2025-06-01 11:47] LABS: ESTIMATED GFR 86 mL/min (>=60); ETHANOL BLOOD MEDICAL < 3 mg/dL (0-3)
[2025-06-01 11:51] LABS: PLATELET COUNT,PLT 48 10^3/uL (150-400)
[2025-06-01] MEDS: Diphtheria,Pertussis(Acell),Tetanus Vaccine 0.5 ML Syringe IM ONE (12:59)
== END 2025-06-01 13:09 | disposition home or self-care (01) ==
LOC: CC.ED 10:57
DX: F10.230 Alcohol dependence with withdrawal, uncomplicated (principal); Z79.899 Other long term (current) drug therapy
CPT/HCPCS: 12011; 36415; 70450; 80053; 80307; 82550; 83735; 85025; 86140; 90471; 90715; 99284; 99284-25; A9270-GY